=== PATIENT | female | born 1950 | race Caucasian/White ===

== ENCOUNTER 2017-11-23 09:52 | Inpatient (IN) | payer MEDICARE ==
[2017-11-23 10:23] LABS: #Basophils 0.1 thou/uL (0.0-0.2); #Eosinphils 0.5 thou/uL (0.0-0.7); #Lymphocytes 1.3 thou/uL (1.20-3.40); #Monocytes 0.5 thou/uL (0.11-0.59); #Neutrophils 6.5 thou/uL (1.40-6.50); %Basophils 0.8 % (0.0-1.0); %Eosinophils 6.1 % (0.0-10.0); %Lymphocytes 14.4 % (21.0-51.0); %Monocytes 6.1 % (0.0-10.0); %Neutrophils 72.7 % (42.0-75.0); Hemoglobin 9.9 g/dL (12.0-16.0); Mean Corpuscular HGB CONC 30.3 g/dL (32.0-36.0); Mean Corpuscular Hemoglobin 26.7 pg (27.0-31.0); Mean Platelet Volume 6.9 fL (7.4-10.4); Platelet Count 479 thou/uL (130-400); RBC Distribution Width 14.8 % (11.5-14.5); Red Blood Cell (RBC) Count 3.72 mill/uL (4.20-5.40)
[2017-11-23 10:42] LABS: ALT (SGPT) 11 U/L (8-55); AST (SGOT) 14 U/L (5-34); Albumin 3.9 g/dL (3.4-4.8); Alkaline Phosphatase 201 U/L (40-150); Anion Gap 14 mmol/L (10-20); BUN (Urea Nitrogen) 17 mg/dL (9.8-20.1); Bilirubin, Total 0.3 mg/dL (0.2-1.2); CK (CPK) Less than 9 U/L (29-168); Calc. Creatinine Clearance 0 mL/min (70-130); Calcium 10.8 mg/dL (7.8-10.44); Carbon Dioxide 22 mmol/L (23-31); Chloride 109 mmol/L (98-107); Estimated GFR-MDRD 25; Globulin 3.3 g/dL (2.4-3.5); Glucose 117 mg/dL (80-115); Potassium 4.6 mmol/L (3.5-5.1); Protein, Total 7.2 g/dL (6.0-8.3); Sodium 140 mmol/L (136-145)
[2017-11-23 10:47] LABS: CKMB 0.6 ng/mL (0-6.6); Troponin I Less than 0.010 ng/mL (< 0.028)
--- NOTE | 2017-11-23 10:58 | CT ---
CT BRAIN WITHOUT CONTRAST: HISTORY: Altered mental status. COMPARISON: None. TECHNIQUE: Multiple contiguous axial images were obtained in a CT of the brain without contrast. FINDINGS: The brain is normal in morphology and attenuation without focal lesions or confluent areas of infarct ion. There is no evidence of hydrocephalus, intracranial hemorrhage, or extraaxial fluid collections . The calvarium and overlying soft tissues are unremarkable. The visualized paranasal sinuses and mast oid air cells are well aerated. IMPRESSION: No evidence of acute intracranial abnormality. POS: [facility]
--- NOTE | 2017-11-23 11:04 | RAD ---
SINGLE VIEW OF THE CHEST: HISTORY: Altered mental status. COMPARISON: None. FINDINGS: Single view of the chest show normal sized cardiomediastinal silhouette. There is no evidence of cons olidation, mass, or pleural effusion. The bones are unremarkable. IMPRESSION: No evidence of acute cardiopulmonary disease. POS: [facility]
[2017-11-23 12:21] LABS: Digoxin 1.31 ng/mL (0.8-2.0)
[2017-11-23] MEDS ORDERED: Acetaminophen 325 MG TAB PO PRN (13:39)
[2017-11-23] MEDS ORDERED: Acetaminophen 650 MG Suppository PR PRN (13:39)
[2017-11-23] MEDS ORDERED: Bisacodyl 5 MG TAB PO PRN (13:39)
[2017-11-23] MEDS ORDERED: Ondansetron HCl/PF 4 MG/2 ML Vial IVP PRN (13:39)
[2017-11-23] MEDS ORDERED: HYDROcodone/Acetaminophen 5/325 mg Tablet PO PRN (13:39)
[2017-11-23] MEDS ORDERED: Sodium Chloride 0.9% 1,000 ML IV SCH (13:45)
[2017-11-23] MEDS: Sodium Chloride 0.9% 1,000 ML IV SCH ×2 (15:27→21:10)
[2017-11-23 16:08] VITALS: BMI 21.9
[2017-11-23] MEDS ORDERED: Ondansetron ODT 4 MG TAB PO PRN (17:53)
[2017-11-23] MEDS ORDERED: Promethazine 25 MG TAB PO PRN (17:53)
[2017-11-23] MEDS ORDERED: Dextrose 50% Abboject 50 ML SYRINGE SLOW IVP PRN (17:54)
[2017-11-23] MEDS ORDERED: Dextrose 5% in Water 1,000 ML IV PRN (17:54)
[2017-11-23] MEDS ORDERED: HumaLOG 300 UNITS/3 ML VIAL SC PRN (17:54)
[2017-11-23] MEDS: Simvastatin 20 MG TAB PO SCH (21:01)
[2017-11-23] MEDS: Docusate 100 MG CAP PO SCH (21:01)
[2017-11-23] MEDS: Topiramate 100 MG TAB PO SCH (21:03)
--- NOTE | 2017-11-23 22:44 | HP ---
PRIMARY CARE PHYSICIAN: Unknown. PRESENTING COMPLAINT: Altered mental state. HISTORY OF PRESENT ILLNESS: 67-year-old female with a past medical history of atrial fibrillation (on Lovenox and digoxin), bipolar disorder on lithium, type 2 diabetes mellitus, hypothyroidism, hypertension, and CKD who presented to the emergency room today after she was found altered by her family. She was noted to have had change in her mental state since 10/2017 after she had a large liver cyst removal and an incidental cholecystectomy at [facility] on 11/15/2017. She had a complicated postop course which required stay in the ICU. Investigations were negative including an EEG, CT brain, as well as an MRI of her brain. The family notes that she was not herself today and was confused and not responding appropriately. They reported that she had gotten better over the past couple of weeks. She denied fever, chills, shortness of breath, chest pain, lower extremity edema, PND or orthopnea. At the emergency room, her vital signs were stable. Labs are significant for a lithium level of 2.84. Digoxin level was 1.31. Serum ammonia and TSH were not elevated. Chest x-ray was unremarkable and a brain CT scan showed no evidence of acute intracranial abnormalities. She was started on bolus fluids in the emergency room and admitted for further management. PAST MEDICAL HISTORY: Atrial fibrillation, bipolar disorder, type 2 diabetes mellitus, hypothyroidism , hypertension, CKD. PAST SURGICAL HISTORY: Cyst removal in the liver, cholecystectomy, and orthopedic surgery involving both ankles. SOCIAL HISTORY: She drinks alcohol socially, but does not smoke cigarettes (per chart review). FAMILY HISTORY: Reviewed and not pertinent. ALLERGIES: LATEX and NATURAL RUBBER. REVIEW OF SYSTEMS: Unable to obtain due to patient's altered mental state. PHYSICAL EXAMINATION: VITAL SIGNS: On arrival, she was hypertensive with blood pressure of 172/76. Other vital signs were within normal apart from low grade temperature 100.5 degrees Fahrenheit. CONSTITUTIONAL: Alert, oriented to person, and occasionally to place. HEENT: Normocephalic, atraumatic. PERRLA, EOMI, anicteric, not pale. RESPIRATORY: Vesicular breath sounds bilaterally with no wheezes, rales or rhonchi. CARDIOVASCULAR: Regular rate and rhythm, S1 and S2 only. No murmurs, rubs or gallops. ABDOMEN: Bowel sounds present, not tender, not distended. No organomegaly. MUSCULOSKELETAL: Moves all extremities spontaneously. No gross abnormality observed. SKIN: Warm, dry, well perfused. NEUROLOGIC: Unable to follow simple commands, Alert but confused. No obvious focal deficit, but examination limited due to the patient's mental status. PSYCHIATRIC: Unable to assess. LABORATORY DATA: As stated above. EKG sinus bradycardia. IMAGING: CT brain and chest x-ray with no acute findings. ASSESSMENT AND PLAN: 1. [place] toxicity. Patient with bipolar disorder presenting with lithium toxicity. She has been started on IV fluids. We will continue on fluids, get repeat lithium in the morning and a Nephrology consult regarding possible hemodialysis. 2. Acute kidney injury on chronic kidney disease: serum creatinine 1.99 on arrival, should improve with hydration. If it does not improve, we will get a retroperitoneal ultrasound to rule out obstructive uropathy. 3. Type 2 diabetes mellitus, controlled at the emergency room, her blood glucose on arrival was 117. Due to acute kidney injury, we will hold metformin , start on sliding scale insulin, diabetic diet, hypoglycemia protocol and fingerstick glucose before meals and at bedtime. 4. Atrial fibrillation. She is rate controlled. We will continue metoprolol, but hold digoxin. We will also continue home Lovenox dose. 5. Hypothyroidism. Resume levothyroxine. 6. Hypertension. Resume home medications, monitor blood pressure closely. MTDD
[2017-11-24] MEDS: Levothyroxine Sodium 75 MCG TAB PO SCH (05:28)
[2017-11-24] MEDS: Sodium Chloride 0.9% 1,000 ML IV SCH ×2 (05:32→12:44)
[2017-11-24 05:42] LABS: #Eosinphils 0.2 thou/uL (0.0-0.7); #Lymphocytes 1.2 thou/uL (1.20-3.40); #Monocytes 0.6 thou/uL (0.11-0.59); #Neutrophils 5.5 thou/uL (1.40-6.50); %Basophils 0.6 % (0.0-1.0); %Eosinophils 3.3 % (0.0-10.0); %Lymphocytes 15.6 % (21.0-51.0); %Monocytes 7.8 % (0.0-10.0); %Neutrophils 72.8 % (42.0-75.0); Hemoglobin 8.7 g/dL (12.0-16.0); Mean Corpuscular HGB CONC 29.4 g/dL (32.0-36.0); Mean Corpuscular Hemoglobin 26.3 pg (27.0-31.0); Mean Corpuscular Volume 89.6 fl (81.0-99.0); Mean Platelet Volume 7.3 fL (7.4-10.4); Platelet Count 391 thou/uL (130-400); Red Blood Cell (RBC) Count 3.29 mill/uL (4.20-5.40); White Blood Cell (WBC) Count 7.5 thou/uL (4.8-10.8)
[2017-11-24 05:55] LABS: ALT (SGPT) 7 U/L (8-55); AST (SGOT) 10 U/L (5-34); Albumin 3.3 g/dL (3.4-4.8); Alkaline Phosphatase 174 U/L (40-150); Anion Gap 10 mmol/L (10-20); BUN (Urea Nitrogen) 14 mg/dL (9.8-20.1); Bilirubin, Total 0.3 mg/dL (0.2-1.2); Calc. Creatinine Clearance 35 mL/min (70-130); Calcium 9.8 mg/dL (7.8-10.44); Carbon Dioxide 20 mmol/L (23-31); Chloride 121 mmol/L (98-107); Estimated GFR-MDRD 36; Globulin 2.6 g/dL (2.4-3.5); Glucose 147 mg/dL (80-115); Potassium 4.6 mmol/L (3.5-5.1); Protein, Total 5.9 g/dL (6.0-8.3); Sodium 146 mmol/L (136-145)
[2017-11-24] MEDS: Docusate 100 MG CAP PO SCH ×2 (08:46→21:51)
[2017-11-24] MEDS: Folic Acid 1 MG TAB PO SCH (08:47)
[2017-11-24] MEDS ORDERED: Enoxaparin Sodium 40 MG/0.4 ML SYRINGE SC SCH ×2 (09:00→12:13)
--- NOTE | 2017-11-24 10:26 | CON ---
DATE OF CONSULTATION: 11/24/2017 HISTORY OF PRESENT ILLNESS: Ms. Salas is a 67-year-old white female with known history of bipolar d isorder, admitted for mental status change. She was noted to have elevated lithium level 2.84. She was admitted for further management. She was given IV hydration with improvement of the lithium level to less than 2. Next level being consulted for acute kidney injury as well as for the elevated lithium. Based on the lab work a nd responds of the lithium to IV hydration, I do not think there is any indication for emergent hemod ialysis. Please note this patient was recently admitted at [facility] for removal of large l iver cyst and an incidental cholecystectomy was done. Postop course required her to stay in the ICU due to some metabolic abnormality -? of hypernatremia. REVIEW OF SYSTEMS: I am unable to obtained the review of systems since the patient is incoherent and dysarthric. HOME MEDICATIONS: With this patient included the following, colestipol 1 gram p.o. b.i.d. p.r.n., Le vothyroxine 75 mcg q. day, Phenergan 25 mg q.6 hours p.r.n., Zofran 4 mg p.o. b.i.d., Lovenox 40 mg s ubcu daily, lithium carbonate 450 mg b.i.d., digoxin 0.125 mg daily, simvastatin 20 mg at bedtime, me toprolol succinate 25 mg daily, topiramate 100 mg p.o. at bedtime, metformin 1000 mg p.o. b.i.d., fol ic acid 1 mg daily, and omeprazole 20 mg tab t.i.d. PAST MEDICAL HISTORY: Includes, bipolar disorder, hypothyroidism, hyperlipidemia, chronic atrial fib rillation, hypertension, type 2 diabetes mellitus, and GERD. PAST SURGICAL HISTORY: 1. Recently status post excision of liver cyst. 2. Status post cholecystectomy. 3. Status post colonoscopy with polypectomy status post bilateral ankle surgery. SOCIAL HISTORY: Alcohol is rarely. No IV drug abuse. No history of smoking. The patient lives wit h family at home. Sedentary lifestyle. ALLERGIES: LATEX. TRAUMA: None. IMMUNIZATIONS: Up to date. HOSPITALIZATIONS: Please see past medical history. FAMILY HISTORY: No family history of ESRD. PHYSICAL EXAMINATION: VITAL SIGNS: Blood pressure is 130/41, heart rate 55, respiratory rate 19, and temperature 98.4. GENERAL: She is awake, but not following commands, somewhat dysarthric. HEENT: Pinkish conjunctivae, anicteric sclerae. NECK: No neck mass, no carotid bruits, no JVD. CHEST: No deformities. LUNGS: Clear breath sounds. HEART: Normal sinus rhythm. No murmur, no gallops, no rubs. ABDOMEN: Globular, soft, nontender, no masses. EXTREMITIES: No edema or deformities. NEUROLOGIC: Moving all extremities. No tremors, no asterixis, no ataxia. The patient is dysarthric . She is awake, but not coherent. LABORATORY DATA: 11/24/2017 - White count 7.5, hemoglobin 8.7, hematocrit 29.5. Sodium 146, potassi um 4.6, chloride is 121, carbon dioxide 20, BUN 14, creatinine 1.45, glucose 147, calcium 9.8, AST 10 , ALT 7. BNP 394, albumin 3.3. TSH is 2.25, lithium level 11/23/2017 was 2.8, 11/24/2017 was 1.8. Digoxin level 1.31. Chest x-ray shows no CHF, no infiltrates. CT scan of the brain, no acute intrac ranial abnormality. ASSESSMENT AND PLAN: 1. Chronic renal failure - the possibility of chronic lesion or nephrotoxicity remains with this pat ient. Long-term plan is that this patient may need to be converted to another medication aside from her lithium for her bipolar disorder. For the moment, we will be holding lithium due to the elevated level. 2. Elevated lithium levels - Currently on IV hydration, improvement of the lithium level, the most r ecent value of 1.8. No indication for any emergent hemodialysis. 3. Hypernatremia. Encourage the patient to increase free water intake. I could not rule out the po ssibility that this patient may have underlying diabetes insipidus, if the serum sodium will further worsen or will not improve. We will be doing urinalysis with this patient. Recheck base met CBC in a.m. and we will do a renal ultrasound. Overall, I agree with current management. She is diuresing well with the current IV hydration.
[2017-11-24 11:28] LABS: Bilirubin Negative (Negative); Blood, Urine Negative (Negative); Clarity CLEAR (Clear); Glucose, Urine (Dipstick) Negative (Negative); Leukocyte Trace (Negative); Nitrite Negative (Negative); Protein, Urine (Dipstick) Negative (Neg-Trace); Specific Gravity, Urine 1.009 (1.002-1.036); Urobilinogen 0.2 mg/dL (0.2-1.0); pH, Urine 7.5 (5.0-9.0)
[2017-11-24 11:45] LABS: Bacteria/HPF None Seen HPF (None Seen); Hyaline Casts/LPF 0-3 HYALINE CAST LPF (0-3 Hyaline); RBC/HPF 0-3 HPF (0-3); Squamous Epithelial 0-3 HPF (0-3); WBC/HPF 0-3 HPF (0-3)
--- NOTE | 2017-11-24 12:09 | PDOC.PN ---
- Subjective Encounter Start Date: 11/24/17 Encounter Start Time: 12:15 Subjective: Stable. No acute events overnight. Melvin levels improving. - Objective Resuscitation Status: Resuscitation Status FULL:Full Resuscitation MAR Reviewed: Yes Vital Signs & Weight: Vital Signs (12 hours) Temp Pulse Resp BP Pulse Ox 11/24/17 11:31 97.6 F 60 16 131/60 94 L 11/24/17 10:19 55 L 16 150/67 H 11/24/17 08:00 97.1 F L 61 16 137/62 100 11/24/17 03:44 97.6 F 61 20 147/66 H 99 Weight Weight 127 lb 8 oz I&O: 11/23/17 11/24/17 11/25/17 06:59 06:59 06:59 Intake Total 2015 Output Total 1900 700 Balance 116 -700 Result Diagrams: 11/24/17 04:41 11/24/17 04:41 Additional Labs: Accuchecks 11/24/17 11/23/17 06:03 20:24 POC Glucose 135 H 101 Phys Exam - Physical Examination Constitutional: NAD HEENT: PERRLA, moist MMs, sclera anicteric Neck: supple, full ROM Respiratory: no wheezing, no rales, clear to auscultation bilateral Cardiovascular: RRR, no significant murmur, no rub Gastrointestinal: soft, non-tender, no distention, positive bowel sounds Musculoskeletal: no edema, pulses present Neurological: moves all 4 limbs Unable to cooperate with exam Deviation from normal: Confused, unable to converse Dx/Plan (1) [place] toxicity Code(s): T56.891A - TOXIC EFFECT OF OTH METALS, ACCIDENTAL (UNINTENTIONAL), INIT Status: Acute Qualifiers: Encounter type: subsequent encounter Injury intent: accidental or unintentional Qualified Code(s): T56.891D - Toxic effect of other metals, accidental (unintentional), subsequent encounter Plan: Continue current management. Comment: Improving with diuresis. Nephrology consulte. No HD indicated. (2) Acute on chronic renal failure Code(s): N17.9 - ACUTE KIDNEY FAILURE, UNSPECIFIED; N18.9 - CHRONIC KIDNEY DISEASE, UNSPECIFIED Status: Acute Qualifiers: Acute renal failure type: unspecified Chronic kidney disease stage: stage 3 (moderate) Qualified Code(s): N17.9 - Acute kidney failure, unspecified; N18.3 - Chronic kidney disease, stage 3 (moderate); N18.3 - Chronic kidney disease, stage 3 (moderate) Plan: Continue current management. Comment: Improving with diuresis. f/u renal US. (3) HTN (hypertension) Code(s): I10 - ESSENTIAL (PRIMARY) HYPERTENSION Status: Acute Qualifiers: Hypertension type: essential hypertension Qualified Code(s): I10 - Essential (primary) hypertension Plan: Continue current management. Comment: Fair control. (4) Type 2 diabetes mellitus Status: Acute Qualifiers: Diabetes mellitus complication status: with kidney complications Diabetes mellitus complication detail: with chronic kidney disease Diabetes mellitus terminal operator insulin use: without terminal operator use Chronic kidney disease stage: stage 3 (moderate) Qualified Code(s): E11.22 - Type 2 diabetes mellitus with diabetic chronic kidney disease; N18.3 - Chronic kidney disease, stage 3 ( moderate); N18.3 - Chronic kidney disease, stage 3 (moderate) Plan: Continue current management. Comment: At goal. Metformin being held 2/2 OLGA LIDIA (5) Bipolar disorder Code(s): F31.9 - BIPOLAR DISORDER, UNSPECIFIED Status: Acute Qualifiers: Active/Remission status: remission status unspecified Qualified Code(s): F31.9 - Bipolar disorder, unspecified Plan: Continue current management. Comment: On Melvin as outpatient but p/w lithium toxicity. Will need an alternative medication. (6) A-fib Code(s): I48.91 - UNSPECIFIED ATRIAL FIBRILLATION Status: Acute Qualifiers: Atrial fibrillation type: chronic Qualified Code(s): I48.2 - Chronic atrial fibrillation Plan: Continue current management. Comment: Rate controlled. Had pauses on telemetry. Asymptomatic. Cardiology consulted. (7) Hypothyroidism Code(s): E03.9 - HYPOTHYROIDISM, UNSPECIFIED Status: Acute Qualifiers: Hypothyroidism type: unspecified Qualified Code(s): E03.9 - Hypothyroidism , unspecified Plan: Continue current management. - Plan cont current plan of care, DVT proph w/lovenox [facility] review. * .
[2017-11-24] MEDS ORDERED: hydrALAZINE 20 MG/ML VIAL SLOW IVP PRN (12:10)
--- NOTE | 2017-11-24 12:16 | ULT ---
ULTRASOUND RETROPERITONEUM COMPLETE: (RENAL) DATE: 11-24-17 HISTORY: 67-year-old female with unspecified renal failure. COMPARISON: None. FINDINGS: Right kidney: 11 x 6.5 x 6 cm Left kidney: 9 x 6.5 x 4.5 cm No right sided hydronephrosis. Mild dilation of the central left renal collecting system. Abnormally diffusely heterogeneously increased echogenicity of the bilateral renal parenchyma, consis tent with medical renal disease. Pre void urinary bladder volume is 460 ml. Bilateral ureteral jets are visualized within the bladder. No abnormal thickening of the urinary bladder bledsoe. Patient unable to void voluntarily. There is an approximately 1 cm hypoechoic lesion in the parenchyma of the lower pole of the left kidn ey, probably a cyst. IMPRESSION: 1. Evidence for medical renal disease: Abnormal echogenicity of the renal parenchyma. 2. Minimal left hydronephrosis is probably due to the distended urinary bladder. No true obstructive uropathy. 3. Probable small 1 cm left renal cyst. MOLLY Xiong POS: [facility]
[2017-11-24] MEDS ORDERED: Enoxaparin Sodium 30 MG/0.3 ML SYRINGE SC SCH (12:30)
--- NOTE | 2017-11-24 15:36 | CON ---
DATE OF CONSULTATION: 11/24/2017 HISTORY OF PRESENT ILLNESS: The patient is a 67-year-old woman who presented with altered mental status. The patient has no previous cardiac history until she was recently hospitalized at [facility]. The patient was found to have a large liver cyst that was removed and underwent a cholecystectomy. Following the procedure, she apparently developed atrial fibrillation. She also developed bradycardia. She was placed on digoxin and metoprolol. The patient presented with lithium toxicity and was admitted with altered mental status. The patient is responsive and now more alert. She denies having any history of syncope or lightheadedness. PAST MEDICAL HISTORY: 1. Bipolar disorder. 2. Diabetes mellitus. 3. Hypertension. 4. Hypothyroidism. 5. Renal insufficiency. 6. Atrial fibrillation. PAST SURGICAL HISTORY: Cyst removal, cholecystectomy and ankle surgery. SOCIAL HISTORY: Former smoker. FAMILY HISTORY: No strong family history of heart disease. ALLERGIES: LATEX. REVIEW OF SYSTEMS: No history of easy bruising or bleeding, bright red blood per rectum. MEDICATIONS ON ADMISSION: I Synthroid 75 mcg daily, Lovenox 40 subcutaneous daily, lithium 450 b.i.d., digoxin 0.125 daily, Zocor 20 at bedtime, Toprol 25 XL daily, topiramate 100 at bedtime, metformin 1000 b.i.d., and Prilosec 20 t.i.d. PHYSICAL EXAMINATION: GENERAL AND VITAL SIGNS: This is a middle-aged woman in no acute distress with a blood pressure 131/60 and heart rate is 60. NECK: Showed no jugular venous distention. LUNGS: Clear to auscultation. HEART: Regular rate and rhythm, normal S1, S2, 1/6 systolic murmur. ABDOMEN: Nondistended. EXTREMITIES: Showed no edema. SKIN: Warm and dry. VASCULAR: Radial pulses are 2+. LABORATORY RESULTS: Sodium 146, potassium 4.6, chloride 121, BUN 14, creatinine was 1.45. Her white blood cell count level was 7.5, hemoglobin 8.7, hematocrit 29.5 and her platelets were 391. Her lithium level was 2.8. Digoxin was 1.3. Her EKG revealed sinus bradycardia, Q-waves suggestive of previous septal infarct. awake overnight monitor revealed marked sinus bradycardia with prolonged pauses up to 2.7 seconds. IMPRESSION: 1. Bradycardia with severe sinus pauses. 2. [place] toxicity. 3. History of possible atrial fibrillation. 4. History of bipolar disorder. 5. Diabetes mellitus. This patient recently underwent surgery. She has developed marked bradycardia after another dose of beta debbi this morning .From a cardiac standpoint, she should be off all negative inotropic medications including digoxin. The patient 's lithium has been held. We will follow this patient with you through her hospitalization. We will obtain records from her previous cardiology evaluation. UZAIR
[2017-11-24] MEDS: Dextrose 5 %-0.45 % NaCl 1,000 ML IV SCH (20:00)
[2017-11-24 20:29] LABS: Calcium 10.3 mg/dL (7.8-10.44); Magnesium 2.1 mg/dL (1.6-2.6); Sodium 150 mmol/L (136-145)
[2017-11-24] MEDS: Simvastatin 20 MG TAB PO SCH (21:22)
[2017-11-24] MEDS: Topiramate 100 MG TAB PO SCH (21:22)
[2017-11-25 02:14] LABS: #Eosinphils 0.1 thou/uL (0.0-0.7); #Lymphocytes 1.3 thou/uL (1.20-3.40); #Monocytes 0.8 thou/uL (0.11-0.59); #Neutrophils 4.7 thou/uL (1.40-6.50); %Basophils 0.3 % (0.0-1.0); %Lymphocytes 18.3 % (21.0-51.0); %Monocytes 12.1 % (0.0-10.0); %Neutrophils 67.3 % (42.0-75.0); Hemoglobin 8.8 g/dL (12.0-16.0); Mean Corpuscular HGB CONC 29.9 g/dL (32.0-36.0); Mean Corpuscular Hemoglobin 26.7 pg (27.0-31.0); Mean Corpuscular Volume 89.2 fl (81.0-99.0); Mean Platelet Volume 7.3 fL (7.4-10.4); Platelet Count 379 thou/uL (130-400); RBC Distribution Width 15.1 % (11.5-14.5); Red Blood Cell (RBC) Count 3.31 mill/uL (4.20-5.40); White Blood Cell (WBC) Count 6.9 thou/uL (4.8-10.8)
[2017-11-25] MEDS: Dextrose 5 %-0.45 % NaCl 1,000 ML IV SCH (02:28)
[2017-11-25 02:57] LABS: ALT (SGPT) 10 U/L (8-55); AST (SGOT) 10 U/L (5-34); Albumin 3.4 g/dL (3.4-4.8); Alkaline Phosphatase 175 U/L (40-150); Anion Gap 10 mmol/L (10-20); BUN (Urea Nitrogen) 11 mg/dL (9.8-20.1); Bilirubin, Total 0.3 mg/dL (0.2-1.2); Calc. Creatinine Clearance 38 mL/min (70-130); Calcium 10.4 mg/dL (7.8-10.44); Carbon Dioxide 17 mmol/L (23-31); Estimated GFR-MDRD 40; Globulin 2.8 g/dL (2.4-3.5); Glucose 200 mg/dL (80-115); Potassium 4.5 mmol/L (3.5-5.1); Protein, Total 6.2 g/dL (6.0-8.3); Sodium 152 mmol/L (136-145)
[2017-11-25 03:00] LABS: Chloride 130 mmol/L (98-107)
[2017-11-25] MEDS ORDERED: Dextrose 5% in Water 1,000 ML IV PRN (03:08)
[2017-11-25] MEDS ORDERED: HumaLOG 300 UNITS/3 ML VIAL SC PRN (03:08)
[2017-11-25] MEDS ORDERED: Dextrose 50% Abboject 50 ML SYRINGE SLOW IVP PRN (03:08)
--- NOTE | 2017-11-25 03:11 | PDOC.EVN ---
Event Note - Event Note Event Note: paged re: progressive hypernatremia despite change in IVF from NS to D5W 1/2 NS will change IVF to D5W, check urine osm, BMP Q6H add SSI for anticipated IVF inducted hyperglycemia d/w bedside nsg
[2017-11-25] MEDS ORDERED: Dextrose 5% in Water 1,000 ML IV SCH ×2 (03:15→08:45)
[2017-11-25] MEDS: Sodium Chloride 0.9% 1,000 ML IV SCH (03:45)
[2017-11-25] MEDS: Levothyroxine Sodium 75 MCG TAB PO SCH ×3 (05:10→09:19)
[2017-11-25 05:58] LABS: Anion Gap 9 mmol/L (10-20); BUN (Urea Nitrogen) 9 mg/dL (9.8-20.1); Calc. Creatinine Clearance 38 mL/min (70-130); Carbon Dioxide 18 mmol/L (23-31); Estimated GFR-MDRD 41; Glucose 195 mg/dL (80-115); Potassium 4.4 mmol/L (3.5-5.1); Sodium 153 mmol/L (136-145)
[2017-11-25 06:07] LABS: Chloride 130 mmol/L (98-107)
[2017-11-25] MEDS ORDERED: Enoxaparin Sodium 30 MG/0.3 ML SYRINGE SC SCH ×2 (09:00→09:23)
[2017-11-25] MEDS: Docusate 100 MG CAP PO SCH ×2 (09:13→20:43)
--- NOTE | 2017-11-25 09:14 | PRG ---
DATE OF SERVICE: 11/25/2017 SUBJECTIVE: Ms. Salas is a 67-year-old white female who was admitted for mental status change. At that time. She was also noted to have a mildly elevated creatinine and elevated lithium. Aggressive IV hydration was done which improved the lithium level to a most recent value of 1.1. However, the patient was noted to be more hypernatremic this morning. I did speak with the nurse and the patient has decreased p.o. intake such as free water. The patient's IV fluid has been changed from normal sa line to D5 water. In addition, we have increased the rate of the D5 water to 125 mL an hour. Please note this patient has decreased/poor p.o. intake. No other complaints today. Denies any chest ren n or shortness of breath. She feels somewhat dysarthric. PHYSICAL EXAMINATION: VITAL SIGNS: Blood pressure is 154/69, heart rate 55, respiratory rate is 18, temperature 98.1, puls e ox 96%. GENERAL: Noted to be awake, alert, can follows simple verbal commands, dysarthric, not in respirator y distress. SKIN: Adequate turgor. HEENT: She has slightly pale conjunctivae, anicteric sclerae. NECK: No neck mass, no carotid bruits, no JVD. CHEST: No deformities. LUNGS: Clear breath sounds. No wheezing, no crackles. HEART: Normal sinus rhythm. No murmur, no gallops or rubs. ABDOMEN: Globular, soft, nontender, no masses. EXTREMITIES: No edema or deformities. MEDICATIONS: 11/25/2017 - Reviewed. LABORATORY: 11/25/2017 - [place] level is 1.1. 11/24/2017 - Urinalysis showed specific gravity of 1.009, no casts noted, no red cells, no white cell s. 11/25/2017. Urine osmolality is 181, sodium 153, potassium 4.4, chloride 130, carbon dioxide 18, BUN 9, creatinine 1.29, glucose is 195, calcium 10. Renal ultrasound shows increased cortical echogenicity. ASSESSMENT AND PLAN: 1. Acute kidney injury - consider a superimposed hemodynamically mediated renal dysfunction on top o f underlying chronic renal failure from possible lithium nephrotoxicity. Please note this patient matias s been taking lithium for the last 40 years for her bipolar disorder. 2. Hypernatremia - IV Fluid has been changed from normal saline to D5 water - I increased the rate t o 125 mL per hour due to the decreased p.o. intake with this patient. 3. Elevated lethal levels, resolved with IV hydration. There is no indication for any dialytic inte rvention. 4. Bipolar disorder. Psychiatric consult was done with her psychiatrist, Dr. Sutton. Overall, I agree with current management, recheck basic metabolic panel and. in a.m.
[2017-11-25] MEDS: Folic Acid 1 MG TAB PO SCH (09:20)
[2017-11-25 09:21] LABS: Anion Gap 6 mmol/L (10-20); BUN (Urea Nitrogen) 8 mg/dL (9.8-20.1); Calc. Creatinine Clearance 36 mL/min (70-130); Calcium 10.2 mg/dL (7.8-10.44); Carbon Dioxide 22 mmol/L (23-31); Estimated GFR-MDRD 39; Glucose 175 mg/dL (80-115); Potassium 4.1 mmol/L (3.5-5.1); Sodium 152 mmol/L (136-145)
[2017-11-25 09:25] LABS: Chloride 128 mmol/L (98-107)
[2017-11-25] MEDS: Enoxaparin Sodium 40 MG/0.4 ML SYRINGE SC SCH (10:46)
--- NOTE | 2017-11-25 11:03 | PDOC.PN ---
- Subjective Encounter Start Date: 11/25/17 Encounter Start Time: 11:11 -: non-verbal (able to say few words (baseline per son)) Subjective: No acute events overnight. -: No complains but difficult to tell since she is mainly non verbal. -: Seems comfortable w family in room. - Objective Resuscitation Status: Resuscitation Status FULL:Full Resuscitation MAR Reviewed: Yes Vital Signs & Weight: Vital Signs (12 hours) Temp Pulse Resp BP Pulse Ox 11/25/17 09:00 97.6 F 59 L 18 167/70 H 100 11/25/17 04:00 98.1 F 55 L 18 154/69 H 96 Weight Weight 123 lb 6.4 oz I&O: 11/24/17 11/25/17 11/26/17 06:59 06:59 06:59 Intake Total 20150 Output Total 1900 3000 Balance 116 370 Result Diagrams: 11/25/17 02:02 11/25/17 08:48 Additional Labs: Accuchecks 11/25/17 11/24/17 11/24/17 06:03 15:38 11:18 POC Glucose 190 H 158 H 149 H Phys Exam - Physical Examination Constitutional: NAD HEENT: PERRLA, moist MMs, sclera anicteric, oral pharynx no lesions Neck: supple, full ROM Respiratory: no wheezing, no rales, no rhonchi, clear to auscultation bilateral Cardiovascular: RRR, no significant murmur, no rub Gastrointestinal: soft, non-tender, no distention, positive bowel sounds Musculoskeletal: no edema, pulses present Neurological: moves all 4 limbs Unable to cooperate w exam Deviation from normal: flat affect. Unable to answer questions appropriately ( son says its b/l) Skin: no rash, normal turgor Dx/Plan (1) Hypernatremia Code(s): E87.0 - HYPEROSMOLALITY AND HYPERNATREMIA Status: Acute Plan: Asymptomatic. 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 Urine output > 3000 mLs. Will get urine, serum sodium and osmolality. Water restriction test not indicated in this patient. (2) Bradycardia Code(s): R00.1 - BRADYCARDIA, UNSPECIFIED Status: Acute Comment: HAd severe pauses. Cardiology reviewed. All [place] blocking agents have been discontinued (3) [place] toxicity Code(s): T56.891A - TOXIC EFFECT OF OTH METALS, ACCIDENTAL (UNINTENTIONAL), INIT Status: Acute Qualifiers: Encounter type: subsequent encounter Injury intent: accidental or unintentional Qualified Code(s): T56.891D - Toxic effect of other metals, accidental (unintentional), subsequent encounter Comment: Improving with diuresis. Nephrology consulte. No HD indicated. (4) Acute on chronic renal failure Code(s): N17.9 - ACUTE KIDNEY FAILURE, UNSPECIFIED; N18.9 - CHRONIC KIDNEY DISEASE, UNSPECIFIED Status: Acute Qualifiers: Acute renal failure type: unspecified Chronic kidney disease stage: stage 3 (moderate) Qualified Code(s): N17.9 - Acute kidney failure, unspecified; N18.3 - Chronic kidney disease, stage 3 (moderate); N18.3 - Chronic kidney disease, stage 3 (moderate) Comment: Improving with diuresis. Renal US showed medical renal disease. (5) HTN (hypertension) Code(s): I10 - ESSENTIAL (PRIMARY) HYPERTENSION Status: Acute Qualifiers: Hypertension type: essential hypertension Qualified Code(s): I10 - Essential (primary) hypertension Comment: Fair control. (6) Type 2 diabetes mellitus Status: Acute Qualifiers: Diabetes mellitus complication status: with kidney complications Diabetes mellitus complication detail: with chronic kidney disease Diabetes mellitus manager intermediate insulin use: without manager intermediate use Chronic kidney disease stage: stage 3 (moderate) Qualified Code(s): E11.22 - Type 2 diabetes mellitus with diabetic chronic kidney disease; N18.3 - Chronic kidney disease, stage 3 ( moderate); N18.3 - Chronic kidney disease, stage 3 (moderate) Comment: At goal. Metformin being held 2/2 OLGA LIDIA (7) Bipolar disorder Code(s): F31.9 - BIPOLAR DISORDER, UNSPECIFIED Status: Acute Qualifiers: Active/Remission status: remission status unspecified Qualified Code(s): F31.9 - Bipolar disorder, unspecified Comment: On [place] as outpatient but p/w lithium toxicity. Will need an alternative medication. (8) A-fib Code(s): I48.91 - UNSPECIFIED ATRIAL FIBRILLATION Status: Acute Qualifiers: Atrial fibrillation type: chronic Qualified Code(s): I48.2 - Chronic atrial fibrillation Comment: Rate controlled. (9) Hypothyroidism Code(s): E03.9 - HYPOTHYROIDISM, UNSPECIFIED Status: Acute Qualifiers: Hypothyroidism type: unspecified Qualified Code(s): E03.9 - Hypothyroidism , unspecified Comment: On levothyroxiine. Will continue - Plan cont current plan of care, plan discussed w/ family, DVT proph w/lovenox * .
[2017-11-25 12:11] LABS: Sodium 149 mmol/L (136-145)
[2017-11-25] MEDS: Sodium Chloride 0.45% 1,000 ML IV SCH ×2 (12:37→22:15)
[2017-11-25 18:47] LABS: Sodium 149 mmol/L (136-145)
[2017-11-25] MEDS: Simvastatin 20 MG TAB PO SCH (20:42)
[2017-11-25] MEDS: Topiramate 100 MG TAB PO SCH (20:42)
[2017-11-26 05:31] LABS: #Basophils 0.1 thou/uL (0.0-0.2); #Eosinphils 0.9 thou/uL (0.0-0.7); #Lymphocytes 2.1 thou/uL (1.20-3.40); #Monocytes 0.8 thou/uL (0.11-0.59); #Neutrophils 4.5 thou/uL (1.40-6.50); %Basophils 0.8 % (0.0-1.0); %Eosinophils 10.4 % (0.0-10.0); %Lymphocytes 25.4 % (21.0-51.0); %Monocytes 9.4 % (0.0-10.0); %Neutrophils 54.1 % (42.0-75.0); Hemoglobin 8.3 g/dL (12.0-16.0); Mean Corpuscular HGB CONC 29.4 g/dL (32.0-36.0); Mean Corpuscular Hemoglobin 26.6 pg (27.0-31.0); Mean Corpuscular Volume 90.5 fl (81.0-99.0); Mean Platelet Volume 7.6 fL (7.4-10.4); Platelet Count 320 thou/uL (130-400); RBC Distribution Width 15.2 % (11.5-14.5); Red Blood Cell (RBC) Count 3.12 mill/uL (4.20-5.40); White Blood Cell (WBC) Count 8.3 thou/uL (4.8-10.8)
[2017-11-26] MEDS: Levothyroxine Sodium 75 MCG TAB PO SCH (05:43)
[2017-11-26 05:44] LABS: ALT (SGPT) 8 U/L (8-55); AST (SGOT) 12 U/L (5-34); Alkaline Phosphatase 151 U/L (40-150); Anion Gap 9 mmol/L (10-20); BUN (Urea Nitrogen) 7 mg/dL (9.8-20.1); Bilirubin, Total 0.3 mg/dL (0.2-1.2); Calc. Creatinine Clearance 39 mL/min (70-130); Calcium 9.5 mg/dL (7.8-10.44); Carbon Dioxide 18 mmol/L (23-31); Chloride 125 mmol/L (98-107); Estimated GFR-MDRD 42; Globulin 2.4 g/dL (2.4-3.5); Glucose 140 mg/dL (80-115); Potassium 4.2 mmol/L (3.5-5.1); Protein, Total 5.4 g/dL (6.0-8.3); Sodium 148 mmol/L (136-145)
[2017-11-26] MEDS: Sodium Chloride 0.45% 1,000 ML IV SCH ×2 (08:37→18:34)
[2017-11-26] MEDS: Enoxaparin Sodium 40 MG/0.4 ML SYRINGE SC SCH (08:37)
[2017-11-26] MEDS: Folic Acid 1 MG TAB PO SCH (08:37)
[2017-11-26] MEDS: Docusate 100 MG CAP PO SCH ×2 (09:07→20:31)
--- NOTE | 2017-11-26 09:41 | PRG ---
DATE OF SERVICE: 11/26/2017 RENAL MEDICINE SUBJECTIVE: Ms. Salas is 67-year-old white female with known history of bipolar disorder, who was a dmitted for lithium toxicity. IV hydration was done which improved the lithium levels to near normal levels. In addition, she was also noted to have some acute kidney injury that was most likely relat ed to her acute lithium nephrotoxicity. In addition, patient was also hypernatremic. For that reaso n she was given free water yesterday which improved serum sodium from a peak of 153 to a most recent value of 148. We have changed D5 water to half normal saline. She is verbalizing and articulating h er words much better. She is feeling much better. She denies any chest pain or shortness of breath. PHYSICAL EXAMINATION: VITAL SIGNS: Blood pressure is 145/67, heart rate 61, respiratory rate 18, temperature 97.6, pulse o x 99%. GENERAL: Noted to be awake, alert, comfortable, not in distress. SKIN: Adequate turgor. HEENT: She has slightly pale conjunctivae, anicteric sclerae. NECK: No neck mass, no carotid bruits, no JVD. CHEST: No deformities. LUNGS: Clear breath sounds. No wheezing, no crackles. HEART: Normal sinus rhythm. Grade 2/6 systolic murmur, no gallops, no rubs. ABDOMEN: Globular, soft, nontender, no masses. EXTREMITIES: No edema, no deformities. MEDICATIONS: Medications of 11/26/2017 was reviewed. LABORATORY DATA: Laboratories of 11/26/2017; white count 8.3, hemoglobin 8.3, hematocrit 28.3. [place] um 148, potassium 4.2, chloride 125, carbon dioxide 18, BUN is 7, creatinine 1.28, glucose 140, AST i s 12, ALT 8, and albumin 3.0. ASSESSMENT AND PLAN: 1. Hypernatremia - slowly improving with half normal saline. Unclear if this patient has overt diab etes insipidus - clinically I do not think so. However, I have encouraged the patient to increase he r free water intake. She will try to comply with this. 2. Acute kidney injury - slowly improving. Unclear what the baseline creatinine will be. If creati nine does not go back to normal baseline, she may have lithium nephrotoxicity, especially in the back ground of intake of lithium for about 40 years. 3. [place] intoxication - much improved with volume repletion. In the near future, I have not exclu ded in starting her on amiloride 5 mg tab once a day to decrease renal accumulation of lithium if she is placed back on the lithium regimen. Please note her speech articulation is much improved with im proving lithium levels. Overall, agree with current management.
--- NOTE | 2017-11-26 09:41 | PDOC.PN ---
- Subjective Encounter Start Date: 11/26/17 Encounter Start Time: 09:44 Subjective: More alert and communicative today. -: Able to have a conversation with some pauses. -: No acute events overnight. - Objective Resuscitation Status: Resuscitation Status FULL:Full Resuscitation MAR Reviewed: Yes Vital Signs & Weight: Vital Signs (12 hours) Temp Pulse Resp BP Pulse Ox 11/26/17 08:32 97.6 F 61 18 145/67 H 99 11/26/17 04:00 98.4 F 58 L 16 138/64 97 Weight Weight 123 lb 6.4 oz I&O: 11/25/17 11/26/17 11/27/17 06:59 06:59 06:59 Intake Total 3370 5283 Output Total 3000 3850 Balance 370 1433 Result Diagrams: 11/26/17 04:31 11/26/17 04:31 Additional Labs: Accuchecks 11/25/17 11/25/17 11/25/17 19:55 15:51 11:16 POC Glucose 136 H 142 H 194 H Phys Exam - Physical Examination Constitutional: NAD HEENT: PERRLA, moist MMs, sclera anicteric Neck: supple, full ROM Respiratory: no wheezing, no rales, no rhonchi, clear to auscultation bilateral Cardiovascular: RRR, no significant murmur, no rub Gastrointestinal: soft, non-tender, no distention, positive bowel sounds Musculoskeletal: no edema, pulses present Neurological: non-focal, moves all 4 limbs Psychiatric: normal affect Deviation from normal: AO x 2 (person and place) Dx/Plan (1) Hypernatremia Code(s): E87.0 - HYPEROSMOLALITY AND HYPERNATREMIA Status: Acute Comment: 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 urine Na 49, osm 181. Serum osmolality pending. Continue IVF and monitor sodium Q6H Will f/u w nephrology regarding DDAVP to confirm diagnosis. (2) Bradycardia Code(s): R00.1 - BRADYCARDIA, UNSPECIFIED Status: Resolved Comment: HAd severe pauses. Cardiology reviewed. All [place] blocking agents have been discontinued (3) [place] toxicity Code(s): T56.891A - TOXIC EFFECT OF OTH METALS, ACCIDENTAL (UNINTENTIONAL), INIT Status: Acute Qualifiers: Encounter type: subsequent encounter Injury intent: accidental or unintentional Qualified Code(s): T56.891D - Toxic effect of other metals, accidental (unintentional), subsequent encounter Plan: Repeat lithium level. Comment: Improving with diuresis. Nephrology on board. Recs appreciated. (4) Acute on chronic renal failure Code(s): N17.9 - ACUTE KIDNEY FAILURE, UNSPECIFIED; N18.9 - CHRONIC KIDNEY DISEASE, UNSPECIFIED Status: Acute Qualifiers: Acute renal failure type: unspecified Chronic kidney disease stage: stage 3 (moderate) Qualified Code(s): N17.9 - Acute kidney failure, unspecified; N18.3 - Chronic kidney disease, stage 3 (moderate); N18.3 - Chronic kidney disease, stage 3 (moderate) Plan: Continue IVF Comment: Improving with diuresis. Renal US showed medical renal disease. (5) HTN (hypertension) Code(s): I10 - ESSENTIAL (PRIMARY) HYPERTENSION Status: Acute Qualifiers: Hypertension type: essential hypertension Qualified Code(s): I10 - Essential (primary) hypertension Comment: Fair well controlled (6) Bipolar disorder Code(s): F31.9 - BIPOLAR DISORDER, UNSPECIFIED Status: Acute Qualifiers: Active/Remission status: remission status unspecified Qualified Code(s): F31.9 - Bipolar disorder, unspecified Comment: On [place] as outpatient but p/w lithium toxicity. Will need an alternative medication. Psychiatrist contacted and will see patient on day of discharge. (7) A-fib Code(s): I48.91 - UNSPECIFIED ATRIAL FIBRILLATION Status: Acute Qualifiers: Atrial fibrillation type: chronic Qualified Code(s): I48.2 - Chronic atrial fibrillation Comment: Rate controlled. (8) Hypothyroidism Code(s): E03.9 - HYPOTHYROIDISM, UNSPECIFIED Status: Acute Qualifiers: Hypothyroidism type: unspecified Qualified Code(s): E03.9 - Hypothyroidism , unspecified Comment: On levothyroxiine. Will continue (9) Polyuria Code(s): R35.8 - OTHER POLYURIA Status: Acute Comment: Likely from DI. - Plan cont current plan of care, DVT proph w/lovenox * .
[2017-11-26 12:50] LABS: Sodium 148 mmol/L (136-145)
[2017-11-26 19:07] LABS: Sodium 148 mmol/L (136-145)
[2017-11-26] MEDS: Topiramate 100 MG TAB PO SCH (20:59)
[2017-11-27 00:48] LABS: Sodium 148 mmol/L (136-145)
[2017-11-27] MEDS: Levothyroxine Sodium 75 MCG TAB PO SCH (04:09)
[2017-11-27] MEDS: Sodium Chloride 0.45% 1,000 ML IV SCH (04:09)
[2017-11-27 04:54] LABS: ALT (SGPT) 8 U/L (8-55); AST (SGOT) 10 U/L (5-34); Albumin 3.4 g/dL (3.4-4.8); Alkaline Phosphatase 161 U/L (40-150); Anion Gap 10 mmol/L (10-20); BUN (Urea Nitrogen) 8 mg/dL (9.8-20.1); Bilirubin, Total 0.3 mg/dL (0.2-1.2); Calc. Creatinine Clearance 38 mL/min (70-130); Calcium 9.8 mg/dL (7.8-10.44); Carbon Dioxide 18 mmol/L (23-31); Chloride 123 mmol/L (98-107); Estimated GFR-MDRD 41; Globulin 2.6 g/dL (2.4-3.5); Glucose 123 mg/dL (80-115); Sodium 147 mmol/L (136-145)
[2017-11-27 05:15] LABS: Anisocytosis SLIGHT = 6-15 cells (100X) (0-5/hpf); Eosinophils 4 % (0-10); Hemoglobin 9.5 g/dL (12.0-16.0); Hypochromia SLIGHT = 6-15 cells (100X) (0-5/hpf); Lymphocytes 28 % (21-51); MDiff Complete? YES; Mean Corpuscular HGB CONC 29.5 g/dL (32.0-36.0); Mean Corpuscular Hemoglobin 26.5 pg (27.0-31.0); Mean Corpuscular Volume 89.9 fl (81.0-99.0); Mean Platelet Volume 7.7 fL (7.4-10.4); Monocytes 3 % (0-10); Neutrophil 65 % (42-75); Ovalocytes SLIGHT = 2-5 cells (100X) (0-1/hpf); PLT Morphology Comment Appears Adequate; Platelet Count 349 thou/uL (130-400); RBC Distribution Width 15.2 % (11.5-14.5); Red Blood Cell (RBC) Count 3.56 mill/uL (4.20-5.40)
[2017-11-27 07:16] VITALS: BP 133/79; TEMP 98.2
[2017-11-27] MEDS: Enoxaparin Sodium 40 MG/0.4 ML SYRINGE SC SCH (07:57)
[2017-11-27] MEDS: Docusate 100 MG CAP PO SCH (07:57)
[2017-11-27] MEDS: Folic Acid 1 MG TAB PO SCH (07:57)
--- NOTE | 2017-11-27 10:40 | PRG ---
DATE OF SERVICE: 11/27/2017 SUBJECTIVE: Ms. Salas is a 67-year-old white female who was seen by the Renal Service for her acute kidney injury and lithium intoxication. At that time her lithium level was noted to be elevated, bu t with IV volume repletion this improved to near normal levels. No new complaints. Her mentation is much improved. In addition, her verbal paucity was improved wit h the decreased levels of lithium. The patient voices no new complaints today. She denies any chest pain or shortness of breath. PHYSICAL EXAMINATION: VITAL SIGNS: Blood pressure 133/79, heart rate 65, respiratory rate 16, temperature 98.2, pulse ox 9 9%. GENERAL: Noted to be awake, alert, comfortable, not in distress. SKIN: Adequate turgor. HEENT: She has pinkish conjunctivae, anicteric sclerae. NECK: No neck mass, no carotid bruit, no JVD. CHEST: No deformities. LUNGS: Clear breath sounds. No wheezing, no crackles. HEART: Normal sinus rhythm. No murmur, no gallops, no rubs. ABDOMEN: Globular, soft, nontender, no masses. EXTREMITIES: No edema, no deformities. MEDICATIONS: 11/27/2017 - Reviewed. LABORATORY: 11/27/2017 - White count 8, hemoglobin 9.5, sodium 147, potassium 4, chloride 123, carbo n dioxide 18, BUN is 8, creatinine 1.29, glucose 123, AST is 10, ALT 8, albumin 3.4. ASSESSMENT AND PLAN: 1. Acute kidney injury/chronic renal failure - much improved creatinine with volume repletion. [place] granados note creatinine peaked at 1.37, currently is now 1.29 and she currently has stage III chronic poppy l failure - most likely related to lithium nephrotoxicity. 2. Hypernatremia. She may have a component of diabetes insipidus. I did encourage this patient to increase her free water intake. She will try to comply with this. 3. [place] intoxication - lithium levels are now in the nontoxic level. Unclear if her psychiatrist will resume her back on her lithium. She tells me she takes lithium 450 mg in the morning and then about 225 mg at night. If she is resumed back on lithium my bias is to start her on amiloride 5 mg t ab once a day to prevent accumulation of lithium in the renal tubules. For the moment I agree with current management. If the patient is discharged, she will follow up at the [facility].
--- NOTE | 2017-11-27 15:36 | DIS ---
DATE OF ADMISSION: 11/23/2017 DATE OF DISCHARGE: 11/27/2017 DISCHARGE DIAGNOSES: [place] toxicity, diabetes insipidus, acute on chronic kidney injury, type 2 diabetes mellitus, atrial fibrillation, hypothyroidism, hypertension, bipolar disorder. HISTORY OF PRESENT ILLNESS: Ms. Laurie Salas is a 67-year-old female with a past medical history of atrial fibrillation (on Lovenox and digoxin), bipolar disorder on lithium, type 2 diabetes mellitus, hypertension, CKD, and hypothyroidism who presented to the emergency room after she was found in an altered mental state by her family. She was noted to have had changes in her mental status from 11/07/2017 after she had a large liver cyst removed and incidental cholecystectomy at [facility]. She had a complicated postop course which required an ICU stay. Workup for altered mental state was negative including an EEG, CT brain as well as an MRI of her brain. Family noted that she was not herself on the day of admission, she was confused, and was not responding appropriately. This was after a few days they felt she had gotten better over the last couple of weeks. She denied fever, chills, shortness of breath, chest pain, lower extremity edema, PND, and orthopnea. In the emergency room, her vital signs were stable. Labs showed a significantly elevated lithium level of 2.84. Digoxin level was 1.31. Serum ammonia and TSH were not elevated. Chest x-ray was unremarkable and a brain CT showed no evidence of acute intracranial abnormalities. She was immediately started on IV fluids and admitted for further management. During her hospital stay with hydration, her lithium level progressively got better and she became more alert and oriented. She was alert and oriented to time, place and person on day of discharge and stated she was eager to get back home. Her OLGA LIDIA also resolved. 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 Her urinary output also was significantly improved and less than 2 liters while after IV fluids had been discontinued. She is to follow up with her psychiatrist the day of discharge ( this has been arranged by family) to start medication other than lithium for her bipolar disorder. Family was in agreement with this plan. Of note, patient also had bradycardia with severe pauses while on admission. It was noted that she was on beta-blockers. Cardiology was consulted and recommended discontinuing all [place] blocking agents including metoprolol and digoxin. She is to follow up with Cardiology after discharge from hospital. Heart rate remained within normal range throughout her admission ranging between 60 and 65 after beta blockers were discontinued. PHYSICAL EXAMINATION: VITAL SIGNS: She was examined on day of discharge, vital signs were stable with temperature of 98.2, pulse of 65, respiratory rate of 16, oxygen saturation of 99% on room air, blood pressure 133/79. GENERAL: Not in acute distress, sitting comfortably in bed. HEENT: PERRLA. Moist mucous membranes. Sclerae are anicteric. NECK: Supple, full range of movement. RESPIRATORY: No wheezing, rales or rhonchi. LUNGS: Clear to auscultation bilaterally. CARDIOVASCULAR: Regular rate and rhythm. No significant murmurs or rubs. GASTROINTESTINAL: Soft, nontender, nondistended, positive bowel sounds. No hepatosplenomegaly. MUSCULOSKELETAL: No edema. Pulses present. NEUROLOGIC: Nonfocal. Moves all four limbs spontaneously. PSYCHIATRIC: Normal affect and mood. Alert and oriented to time, place and person. DISCHARGE MEDICATIONS: Colestipol 1 gram b.i.d. p.r.n., enoxaparin 40 mg subcu daily, folic acid 1 mg daily, levothyroxine 75 mcg daily, metformin 1000 mg b.i.d., omeprazole 20 mg t.i.d. with meals, ondansetron 4 mg b.i.d. p.r.n. for nausea and vomiting, promethazine 25 mg q.4 h. p.r.n. for nausea/vomiting, simvastatin 20 mg p.o. at bedtime, topiramate 100 mg p.o. at bedtime. CONSULTS: Nephrology and Cardiology. LABORATORY DATA: [place] level on 11/26/2017, 0.516. CBC showed WBC of 8, hemoglobin of 9.5, hematocrit of 32, platelet count of 349. Chemistry: Sodium 147, potassium 4, chloride 123, carbon dioxide 18, anion gap 10, BUN 8, creatinine 1.29, glucose 206, and calcium 9.8. IMAGING: Brain CT, chest x-ray, renal ultrasound. Renal ultrasound showed medical renal disease. CONDITION AT DISCHARGE: Stable and improved. PROCEDURES: None. DIET: Heart healthy, diabetic. CARE GOALS: To follow up with her primary care physician within 1 week of discharge for repeat labs, to follow up with psychiatry on the day of discharge (this has been arranged by family). She will also follow up with Cardiology after discharge for control of atrial fibrillation. ACTIVITY: As tolerated. Activity as tolerated. Time of discharge, 65 minutes including chart review and documentation. UZAIR
== END 2017-11-27 11:49 | disposition home or self-care (01) | DRG 918 ==
LOC: ERS 09:52 → ERHOLD 11:58 → 2NO 15:15 → T4-B 11-26 18:21
PROVIDERS: ADMIT Internal Medicine; ATTEND Internal Medicine
DX: T56.891A Toxic effect of other metals, accidental (unintentional), initial encounter (principal); N17.9 Acute kidney failure, unspecified; E87.0 Hyperosmolality and hypernatremia; E11.22 Type 2 diabetes mellitus with diabetic chronic kidney disease; N25.1 Nephrogenic diabetes insipidus; I48.2 Chronic atrial fibrillation; R00.1 Bradycardia, unspecified; F31.9 Bipolar disorder, unspecified; E03.9 Hypothyroidism, unspecified; R35.8 Other polyuria; I12.9 Hypertensive chronic kidney disease with stage 1 through stage 4 chronic kidney disease, or unspecified chronic kidney disease; N18.3 Chronic kidney disease, stage 3 (moderate)
CPT/HCPCS: 36415; 36416; 70450; 71045; 76770; 80053; 80162; 80178; 81003; 81015; 82140; 82553; 83735; 83880; 83930; 83935; 84300; 84443; 84484; 85025; 93005; 94760; 96360; 96361; A4216; J1650

== ENCOUNTER 2018-03-09 08:37 | Outpatient (CLI) | payer MEDICARE | END 2018-03-09 08:38 | disposition home or self-care (01) | LOC: BICMAMMO 08:37 | PROVIDERS: ATTEND Family Medicine | DX: Z12.31 Encounter for screening mammogram for malignant neoplasm of breast (principal); Z80.3 Family history of malignant neoplasm of breast | CPT/HCPCS: 77063; 77067 ==

== ENCOUNTER 2018-05-05 09:33 | Outpatient (CLI) | payer MEDICARE ==
[2018-05-05] MEDS ORDERED: Gadobenate Dimeglumine 529 MG/1 ML (20ML VIAL) ONE (12:58)
== END 2018-05-05 09:34 | disposition home or self-care (01) ==
LOC: BICMRI 09:33
PROVIDERS: ATTEND Internal Medicine Gastroenterology
DX: K21.9 Gastro-esophageal reflux disease without esophagitis (principal); K76.89 Other specified diseases of liver; D64.9 Anemia, unspecified; R19.7 Diarrhea, unspecified; R11.0 Nausea; N28.1 Cyst of kidney, acquired; F32.9 Major depressive disorder, single episode, unspecified; Z86.010 Personal history of colon polyps; Z98.890 Other specified postprocedural states; Z90.49 Acquired absence of other specified parts of digestive tract
CPT/HCPCS: 74183; 82565; A9579

== ENCOUNTER 2018-06-21 01:09 | Emergency (ER) | payer MEDICARE ==
[2018-06-21 02:07] LABS: #Eosinphils 0.1 thou/uL (0.0-0.7); #Lymphocytes 1.4 thou/uL (1.20-3.40); #Monocytes 0.6 thou/uL (0.11-0.59); #Neutrophils 2.5 thou/uL (1.40-6.50); %Basophils 0.8 % (0.0-1.0); %Eosinophils 2.9 % (0.0-10.0); %Lymphocytes 31.1 % (21.0-51.0); %Monocytes 11.9 % (0.0-10.0); %Neutrophils 53.4 % (42.0-75.0); Hemoglobin 11.2 g/dL (12.0-16.0); Mean Corpuscular HGB CONC 33.7 g/dL (32.0-36.0); Mean Corpuscular Volume 86.1 fL (78.0-98.0); Mean Platelet Volume 7.4 fL (7.4-10.4); Platelet Count 209 thou/uL (130-400); RBC Distribution Width 14.7 % (11.5-14.5); Red Blood Cell (RBC) Count 3.85 mill/uL (4.20-5.40); White Blood Cell (WBC) Count 4.6 thou/uL (4.8-10.8)
[2018-06-21 02:30] LABS: ALT (SGPT) 18 U/L (8-55); AST (SGOT) 18 U/L (5-34); Albumin 4.4 g/dL (3.4-4.8); Alkaline Phosphatase 69 U/L (40-150); Anion Gap 15 mmol/L (10-20); BUN (Urea Nitrogen) 26 mg/dL (9.8-20.1); Bilirubin, Total 0.3 mg/dL (0.2-1.2); Calc. Creatinine Clearance 0 mL/min (70-130); Calcium 10.3 mg/dL (7.8-10.44); Carbon Dioxide 21 mmol/L (23-31); Chloride 111 mmol/L (98-107); Estimated GFR-MDRD 39; Globulin 2.8 g/dL (2.4-3.5); Glucose 183 mg/dL (80-115); Potassium 3.9 mmol/L (3.5-5.1); Protein, Total 7.2 g/dL (6.0-8.3); Sodium 143 mmol/L (136-145)
== END 2018-06-21 04:06 | disposition home or self-care (01) ==
LOC: ERS 01:09
DX: E05.90 Thyrotoxicosis, unspecified without thyrotoxic crisis or storm (principal); E11.9 Type 2 diabetes mellitus without complications; I10 Essential (primary) hypertension; F31.9 Bipolar disorder, unspecified; Z79.84 Long term (current) use of oral hypoglycemic drugs; Z79.899 Other long term (current) drug therapy
CPT/HCPCS: 36415; 80053; 84443; 85025; 99283

== ENCOUNTER 2018-06-22 03:10 | Emergency (ER) | payer MEDICARE ==
[2018-06-22 04:15] LABS: #Basophils 0.1 thou/uL (0.0-0.2); #Eosinphils 0.2 thou/uL (0.0-0.7); #Lymphocytes 2.4 thou/uL (1.20-3.40); #Monocytes 0.5 thou/uL (0.11-0.59); #Neutrophils 2.5 thou/uL (1.40-6.50); %Basophils 1.3 % (0.0-1.0); %Eosinophils 3.1 % (0.0-10.0); %Lymphocytes 42.8 % (21.0-51.0); %Monocytes 8.7 % (0.0-10.0); %Neutrophils 44.2 % (42.0-75.0); Hemoglobin 11.6 g/dL (12.0-16.0); Mean Corpuscular HGB CONC 33.3 g/dL (32.0-36.0); Mean Corpuscular Hemoglobin 28.6 pg (27.0-31.0); Mean Corpuscular Volume 85.9 fL (78.0-98.0); Mean Platelet Volume 7.5 fL (7.4-10.4); Platelet Count 246 thou/uL (130-400); RBC Distribution Width 14.8 % (11.5-14.5); Red Blood Cell (RBC) Count 4.04 mill/uL (4.20-5.40); White Blood Cell (WBC) Count 5.6 thou/uL (4.8-10.8)
[2018-06-22 04:28] LABS: Bilirubin Negative (Negative); Blood, Urine Negative (Negative); Clarity CLEAR (Clear); Glucose, Urine (Dipstick) Negative (Negative); Leukocyte Trace (Negative); Nitrite Negative (Negative); Protein, Urine (Dipstick) Negative (Neg-Trace); Specific Gravity, Urine 1.005 (1.002-1.036); Urobilinogen 0.2 mg/dL (0.2-1.0); pH, Urine 6.5 (5.0-9.0)
[2018-06-22 04:30] LABS: Bacteria/HPF None Seen HPF (None Seen); Hyaline Casts/LPF 0-3 HYALINE CAST LPF (0-3 Hyaline); Pathc Cast-AUWi Flag 0.14 (0-2.49); RBC/HPF 0-3 HPF (0-3); Squamous Epithelial 0-3 HPF (0-3); WBC/HPF 0-3 HPF (0-3)
[2018-06-22 04:34] LABS: ALT (SGPT) 20 U/L (8-55); AST (SGOT) 21 U/L (5-34); Acetaminophen Less than 6.0 mcg/mL (10.0-30.0); Albumin 4.6 g/dL (3.4-4.8); Alcohol Less than 10 mg/dL (Less than 10); Alkaline Phosphatase 65 U/L (40-150); Anion Gap 14 mmol/L (10-20); BUN (Urea Nitrogen) 26 mg/dL (9.8-20.1); Bilirubin, Total 0.3 mg/dL (0.2-1.2); Calc. Creatinine Clearance 0 mL/min (70-130); Calcium 10.2 mg/dL (7.8-10.44); Carbon Dioxide 23 mmol/L (23-31); Chloride 110 mmol/L (98-107); Estimated GFR-MDRD 31; Globulin 2.9 g/dL (2.4-3.5); Glucose 119 mg/dL (80-115); Potassium 4.1 mmol/L (3.5-5.1); Protein, Total 7.5 g/dL (6.0-8.3); Salicylate Less than 8.0 mg/dL (15.0-30.0); Sodium 143 mmol/L (136-145)
[2018-06-22 04:41] LABS: Amphetamine Not Detected (NotDetected); Barbiturates Screen Not Detected (NotDetected); Benzodiazepine Screen Not Detected (NotDetected); Cocaine Metabolite Screen Not Detected (NotDetected); Medtox Control Line Valid? VALID (VALID); Medtox Reader # READER 4; Methadone Not Detected (NotDetected); Methamphetamine Not Detected (NotDetected); Opiate Screen Not Detected (NotDetected); Oxycodone Screen Not Detected (NotDetected); Phencyclidine (PCP) Not Detected (NotDetected); THC/Cannabinoid Screen Not Detected (NotDetected); Tricyclic Screen Detected (NotDetected)
[2018-06-22] MEDS ORDERED: metFORMIN 500 MG TAB PO SCH (09:00)
[2018-06-22] MEDS ORDERED: Cholecalciferol (Vitamin D3) 400 UNITS TAB PO SCH (09:00)
[2018-06-22] MEDS ORDERED: Acetaminophen 500 MG TAB ONE (10:34)
[2018-06-22] MEDS ORDERED: Atorvastatin Calcium 10 MG TAB PO SCH (21:00)
[2018-06-23] MEDS ORDERED: Levothyroxine Sodium 75 MCG TAB PO SCH (06:00)
== END 2018-06-22 12:43 ==
LOC: ERS 03:10
DX: F30.9 Manic episode, unspecified (principal); R45.850 Homicidal ideations; E11.9 Type 2 diabetes mellitus without complications; E03.9 Hypothyroidism, unspecified; I10 Essential (primary) hypertension; Z79.899 Other long term (current) drug therapy; Z79.84 Long term (current) use of oral hypoglycemic drugs
CPT/HCPCS: 36415; 80053; 80306; 80307; 81003; 81015; 84443; 85025; 99285

== ENCOUNTER 2019-03-24 13:22 | Outpatient (CLI) | payer MEDICARE ==
--- NOTE | 2019-03-24 14:55 | MMO ---
Bilateral MAMMO Bilat Screen DDI+NANCY. CLINICAL HISTORY: Patient is 68 years old and is seen for screening. The patient has the following family history of breast cancer: mother and maternal aunt. The patient has no personal history of cancer. The patient has a history of left needle biopsy - benign. VIEWS: The views performed were: bilateral craniocaudal with tomosynthesis and bilateral mediolateral oblique with tomosynthesis. FILMS COMPARED: The present examination has been compared to prior imaging studies performed at [facility] on 03/09/2018, and at [facility] on 12/14/2006 and 05/18/2013. MAMMOGRAM FINDINGS: There are scattered fibroglandular densities. There are stable benign appearing calcifications seen in both breasts. There are no suspicious masses, suspicious calcifications, or new areas of architectural distortion. IMPRESSION: THERE IS NO MAMMOGRAPHIC EVIDENCE OF MALIGNANCY. A ROUTINE FOLLOW-UP MAMMOGRAM IN 1 YEAR IS RECOMMENDED. THE RESULTS OF THIS EXAM WERE SENT TO THE PATIENT. ACR BI-RADS Category 2 - Benign finding MAMMOGRAPHY NOTE: 1. A negative mammogram report should not delay a biopsy if a dominant of clinically suspicious mass is present. 2. Approximately 10% to 15% of breast cancers are not detected by mammography. 3. Adenosis and dense breasts may obscure an underlying neoplasm.
--- NOTE | 2019-03-24 16:20 | BD ---
DEXA BONE DENSITY EXAM: HISTORY: A 68-year-old postmenopausal female for screening. COMPARISON: 05/17/2013 FINDINGS: LUMBAR SPINE BMD (g/cm2) T-SCORE L1 0.912 -0.7 L2 0.974 -0.5 L3 0.956 -1.2 L4 1.093 0.3 TOTAL L1-L4 0.980 -0.6 LEFT FEMORAL NECK 0.522 -2.9 TOTAL PROXIMAL LEFT FEMUR 0.785 -1.3 IMPRESSION: Osteoporosis. When compared to the prior examination, the bone density in the hip has decreased appr oximately 9%, and the bony density in the spine has decreased approximately 5%. POS: TPC
== END 2019-03-24 13:23 | disposition home or self-care (01) ==
LOC: BICMAMMO 13:22
PROVIDERS: ATTEND Family Medicine
DX: Z12.31 Encounter for screening mammogram for malignant neoplasm of breast (principal); Z78.0 Asymptomatic menopausal state; M81.0 Age-related osteoporosis without current pathological fracture; Z80.3 Family history of malignant neoplasm of breast
CPT/HCPCS: 77063; 77067; 77080

== ENCOUNTER 2020-08-06 09:04 | Outpatient (CLI) | payer MEDICARE ==
--- NOTE | 2020-08-06 12:05 | RAD ---
EXAM: XR Barium Enema A/C STANDARD PROVIDED CLINICAL HISTORY: Incomplete colonoscopy. Ascending colon and cecum unable to be evaluated. COMPARISON: None FINDINGS: A double contrast barium enema was performed in usual fashion. The colon demonstrates tortuosity with redundancy of the transverse colon which extends into the pelvis. Contrast was visualized to the level of the cecum with contrast seen in the appendix. Contrast was unable to be adequately evacuated on this exam. No annular constricting lesion is seen. No definite persistent filling defect is visualized. Large amount of retained barium is present on the postevacuation images. Tobacco Shaker AP image of the abdomen demonstrates nonspecific bowel gas pattern. Radiopaque densities overli e the pelvis likely related to prior tubal ligation. Surgical clips overlie the right upper quadrant. There is prominent left convex rotoscoliosis of the lumbar spine. IMPRESSION: 1. No annular constricting lesion or persistent filling defect is seen involving the colon. 2. Large amount of retained contrast seen on postevacuation images.
== END 2020-08-06 09:05 | disposition home or self-care (01) ==
LOC: RAD 09:04
PROVIDERS: ATTEND Internal Medicine Gastroenterology
DX: Z53.9 Procedure and treatment not carried out, unspecified reason (principal); K52.89 Other specified noninfective gastroenteritis and colitis
CPT/HCPCS: 74280

== ENCOUNTER 2020-10-02 13:05 | Outpatient (CLI) | payer MEDICARE | END 2020-10-02 13:06 | disposition home or self-care (01) | LOC: DTY/OP 13:05 | PROVIDERS: ATTEND Family Medicine | DX: E11.22 Type 2 diabetes mellitus with diabetic chronic kidney disease (principal); N18.9 Chronic kidney disease, unspecified; E11.21 Type 2 diabetes mellitus with diabetic nephropathy | CPT/HCPCS: 97802 ==

== ENCOUNTER 2021-07-02 15:39 | Outpatient (CLI) | payer MEDICARE | END 2021-07-02 15:40 | disposition home or self-care (01) | LOC: BICMAMMO 15:39 | PROVIDERS: ATTEND Family Medicine | DX: Z12.31 Encounter for screening mammogram for malignant neoplasm of breast (principal); Z80.3 Family history of malignant neoplasm of breast | CPT/HCPCS: 77063; 77067 ==

== ENCOUNTER 2022-05-01 08:26 | Inpatient (IN) | payer MEDICARE ==
[2022-05-01 09:15] LABS: #Lymphocytes 1.7 thou/uL (1.20-3.40); #Monocytes 0.7 thou/uL (0.11-0.59); #Neutrophils 5.5 thou/uL (1.40-6.50); %Basophils 0.1 % (0.0-1.0); %Eosinophils 0.6 % (0.0-10.0); %Lymphocytes 21.2 % (21.0-51.0); %Monocytes 9.2 % (0.0-10.0); Hemoglobin 13.2 g/dL (12.0-16.0); Mean Corpuscular HGB CONC 32.2 g/dL (32.0-36.0); Mean Corpuscular Hemoglobin 32.2 pg (27.0-31.0); Mean Platelet Volume 8.3 fL (7.4-10.4); Platelet Count 168 thou/uL (130-400); RBC Distribution Width 13.1 % (11.5-14.5)
[2022-05-01 09:33] LABS: ALT (SGPT) 20 U/L (8-55); AST (SGOT) 37 U/L (5-34); Albumin 3.9 g/dL (3.4-4.8); Alkaline Phosphatase 56 U/L (40-110); Anion Gap 17 mmol/L (10-20); BUN (Urea Nitrogen) 25 mg/dL (9.8-20.1); Bilirubin, Total 0.4 mg/dL (0.2-1.2); Calc. Creatinine Clearance 0 mL/min (70-130); Calcium 9.3 mg/dL (7.8-10.44); Carbon Dioxide 23 mmol/L (23-31); Chloride 107 mmol/L (98-107); Estimated GFR 29; Globulin 2.9 g/dL (2.4-3.5); Glucose 150 mg/dL (80-115); Potassium 5.1 mmol/L (3.5-5.1); Protein, Total 6.8 g/dL (5.8-8.1); Sodium 142 mmol/L (136-145)
[2022-05-01 09:37] LABS: Acetaminophen Less than 10.0 mcg/mL (10.0-30.0); Alcohol Less than 10 mg/dL (Less than 10); Salicylate Less than 8.0 mg/dL (15.0-30.0)
[2022-05-01 12:25] LABS: Lactic Acid 3.9 mmol/L (0.5-2.2)
[2022-05-01 12:49] LABS: Bilirubin Negative (Negative); Blood, Urine Negative (Negative); Clarity Clear (Clear); Glucose, Urine (Dipstick) Normal (Negative); Ketone, Urine Trace mg/dL (Negative); Leukocyte Negative Leu/uL (Negative); Nitrite Negative (Negative); Protein, Urine (Dipstick) Negative (Neg-Trace); Specific Gravity, Urine 1.009 (1.002-1.036); Urobilinogen Normal mg/dL (Less than 2)
[2022-05-01 12:58] LABS: Amphetamine Not Detected (NotDetected); Barbiturates Screen Not Detected (NotDetected); Benzodiazepine Screen Not Detected (NotDetected); Cocaine Metabolite Screen Not Detected (NotDetected); Methadone Not Detected (NotDetected); Methamphetamine Not Detected (NotDetected); Opiate Screen Not Detected (NotDetected); Oxycodone Screen Not Detected (NotDetected); Phencyclidine (PCP) Not Detected (NotDetected); THC/Cannabinoid Screen Not Detected (NotDetected); Tricyclic Screen Detected (NotDetected)
[2022-05-01] MEDS ORDERED: Vancomycin 1 GM/200 ML BAG ONE (13:09)
[2022-05-01] MEDS ORDERED: Cefepime 2 GM VIAL ONE (13:09)
[2022-05-01 15:45] LABS: SARS-CoV-2 NAA Rapid Test Not Detected (NotDetected)
[2022-05-01] MEDS ORDERED: HumaLOG 300 UNITS/3 ML VIAL SC PRN (16:47)
[2022-05-01] MEDS ORDERED: Acetaminophen 325 MG TAB PO PRN (16:47)
[2022-05-01] MEDS ORDERED: Ondansetron ODT 4 MG TAB PO PRN (16:47)
[2022-05-01] MEDS ORDERED: Dextrose 5% in Water 1,000 ML IV PRN (16:47)
[2022-05-01] MEDS ORDERED: Dextrose 50% Abboject 50 ML SYRINGE SLOW IVP PRN (16:47)
[2022-05-01] MEDS ORDERED: Sodium Chloride 0.9% 1,000 ML IV SCH (17:00)
[2022-05-01 17:32] LABS: Lactic Acid 3.4 mmol/L (0.5-2.2)
[2022-05-01] MEDS ORDERED: cefTRIAXone\\ROCEPHIN 1 GM in Sodium Chloride 0.9% 100 ML IVPB SCH (18:00)
[2022-05-01 18:02] LABS: Thyroid Stimulating Hormone 0.2635 uIU/mL (0.35-4.94)
[2022-05-01 18:31] VITALS: BMI 29.9
[2022-05-01] MEDS: Sodium Chloride 0.9% 1,000 ML IV SCH (19:48)
[2022-05-01] MEDS ORDERED: Vancomycin 1 GM in Premix Bag 1 BAG IVPB SCH (21:00)
[2022-05-01] MEDS ORDERED: Cefepime 2 GM in Sodium Chloride 0.9% 100 ML IVPB SCH (21:00)
[2022-05-02 04:41] LABS: Lactic Acid 1.2 mmol/L (0.5-2.2)
[2022-05-02 04:44] LABS: Anion Gap 12 mmol/L (10-20); BUN (Urea Nitrogen) 20 mg/dL (9.8-20.1); Calc. Creatinine Clearance 47 mL/min (70-130); Calcium 8.4 mg/dL (7.8-10.44); Carbon Dioxide 21 mmol/L (23-31); Chloride 115 mmol/L (98-107); Estimated GFR 41; Glucose 150 mg/dL (80-115); Potassium 4.5 mmol/L (3.5-5.1); Sodium 143 mmol/L (136-145)
[2022-05-02 05:03] LABS: Band 14 % (5-11); Hemoglobin 11.2 g/dL (12.0-16.0); Lymphocytes 34 % (21-51); MDiff Complete? YES; Macrocytosis SLIGHT = 6-15 cells (100X) (0-5/hpf); Mean Corpuscular HGB CONC 32.3 g/dL (32.0-36.0); Mean Corpuscular Hemoglobin 32.6 pg (27.0-31.0); Mean Platelet Volume 8.2 fL (7.4-10.4); Monocytes 4 % (0-10); Neutrophil 46 % (42-75); Platelet Count 149 thou/uL (130-400); Platelet Morphology Comment Appears Adequate; RBC Distribution Width 12.9 % (11.5-14.5); Reactive Lymphocytes 2 % (0-10); Red Blood Cell (RBC) Count 3.44 mill/uL (4.20-5.40); White Blood Cell (WBC) Count 5.1 thou/uL (4.8-10.8)
[2022-05-02] MEDS: Sodium Chloride 0.9% 1,000 ML IV SCH ×2 (06:14→20:00)
[2022-05-02] MEDS: cefTRIAXone\\ROCEPHIN 1 GM in Sodium Chloride 0.9% 100 ML IVPB SCH (09:04)
[2022-05-02 11:15] LABS: Syphilis Antibody Nonreactive (Nonreactive); Syphilis Antibody Index 0.01 S/CO (<1.00 Non-Reactive)
[2022-05-02] MEDS: HumaLOG 300 UNITS/3 ML VIAL SC PRN (12:14)
[2022-05-03 04:33] LABS: Anion Gap 16 mmol/L (10-20); BUN (Urea Nitrogen) 19 mg/dL (9.8-20.1); Calc. Creatinine Clearance 46 mL/min (70-130); Calcium 8.6 mg/dL (7.8-10.44); Carbon Dioxide 19 mmol/L (23-31); Chloride 114 mmol/L (98-107); Estimated GFR 39; Glucose 131 mg/dL (80-115); Potassium 4.5 mmol/L (3.5-5.1); Sodium 144 mmol/L (136-145)
[2022-05-03 04:43] LABS: #Basophils 0.1 thou/uL (0.0-0.2); #Eosinphils 0.1 thou/uL (0.0-0.7); #Lymphocytes 2.2 thou/uL (1.20-3.40); #Monocytes 0.7 thou/uL (0.11-0.59); #Neutrophils 1.8 thou/uL (1.40-6.50); %Eosinophils 2.4 % (0.0-10.0); %Lymphocytes 45.6 % (21.0-51.0); %Monocytes 14.1 % (0.0-10.0); %Neutrophils 36.8 % (42.0-75.0); Hemoglobin 10.9 g/dL (12.0-16.0); Mean Corpuscular HGB CONC 31.9 g/dL (32.0-36.0); Mean Corpuscular Hemoglobin 32.5 pg (27.0-31.0); Mean Platelet Volume 8.1 fL (7.4-10.4); Platelet Count 146 thou/uL (130-400); RBC Distribution Width 13.3 % (11.5-14.5); Red Blood Cell (RBC) Count 3.36 mill/uL (4.20-5.40); White Blood Cell (WBC) Count 4.8 thou/uL (4.8-10.8)
[2022-05-03] MEDS ORDERED: BIOTIN 1 GM PO SCH (09:00)
[2022-05-03] MEDS: Levothyroxine Sodium 75 MCG TAB PO SCH (09:17)
[2022-05-03] MEDS: Calcitriol 0.25 MCG CAP PO SCH (10:04)
[2022-05-03] MEDS: Cholecalciferol 1,000 UNITS (25 MCG) TAB PO SCH (10:04)
[2022-05-03] MEDS: cefTRIAXone\\ROCEPHIN 1 GM in Sodium Chloride 0.9% 100 ML IVPB SCH (10:04)
[2022-05-03] MEDS: Sodium Chloride 0.9% 1,000 ML IV SCH ×2 (10:05→19:49)
[2022-05-04 05:15] LABS: Anion Gap 16 mmol/L (10-20); BUN (Urea Nitrogen) 23 mg/dL (9.8-20.1); Calc. Creatinine Clearance 40 mL/min (70-130); Calcium 9.3 mg/dL (7.8-10.44); Chloride 113 mmol/L (98-107); Estimated GFR 36; Glucose 138 mg/dL (80-115); Potassium 4.5 mmol/L (3.5-5.1); Sodium 146 mmol/L (136-145)
[2022-05-04] MEDS: Levothyroxine Sodium 75 MCG TAB PO SCH (05:23)
[2022-05-04 05:43] LABS: Carbon Dioxide 22 mmol/L (23-31)
[2022-05-04 05:47] LABS: Eosinophils 1 % (0-10); Hemoglobin 12.3 g/dL (12.0-16.0); Lymphocytes 48 % (21-51); MDiff Complete? YES; Macrocytosis SLIGHT = 6-15 cells (100X) (0-5/hpf); Mean Corpuscular HGB CONC 32.5 g/dL (32.0-36.0); Mean Corpuscular Hemoglobin 33.3 pg (27.0-31.0); Mean Platelet Volume 8.7 fL (7.4-10.4); Monocytes 11 % (0-10); Neutrophil 40 % (42-75); Platelet Count 158 thou/uL (130-400); Platelet Morphology Comment Appears Adequate; RBC Distribution Width 13.2 % (11.5-14.5); Red Blood Cell (RBC) Count 3.68 mill/uL (4.20-5.40); White Blood Cell (WBC) Count 5.3 thou/uL (4.8-10.8)
[2022-05-04] MEDS: Cholecalciferol 1,000 UNITS (25 MCG) TAB PO SCH (09:03)
[2022-05-04] MEDS: Calcitriol 0.25 MCG CAP PO SCH (09:03)
[2022-05-04] MEDS: Lactated Ringer's 1,000 ML IV SCH ×2 (09:37→18:24)
[2022-05-05] MEDS: Lactated Ringer's 1,000 ML IV SCH ×3 (01:47→18:24)
[2022-05-05 04:33] LABS: #Eosinphils 0.1 thou/uL (0.0-0.7); #Lymphocytes 2.6 thou/uL (1.20-3.40); #Neutrophils 2.8 thou/uL (1.40-6.50); %Basophils 0.7 % (0.0-1.0); %Eosinophils 1.7 % (0.0-10.0); %Lymphocytes 39.8 % (21.0-51.0); %Monocytes 14.8 % (0.0-10.0); Hemoglobin 11.3 g/dL (12.0-16.0); Mean Corpuscular Hemoglobin 32.7 pg (27.0-31.0); Mean Platelet Volume 7.8 fL (7.4-10.4); Platelet Count 170 thou/uL (130-400); RBC Distribution Width 13.4 % (11.5-14.5); Red Blood Cell (RBC) Count 3.44 mill/uL (4.20-5.40); White Blood Cell (WBC) Count 6.5 thou/uL (4.8-10.8)
[2022-05-05 04:48] LABS: Anion Gap 13 mmol/L (10-20); BUN (Urea Nitrogen) 23 mg/dL (9.8-20.1); Calc. Creatinine Clearance 40 mL/min (70-130); Calcium 9.2 mg/dL (7.8-10.44); Carbon Dioxide 22 mmol/L (23-31); Chloride 114 mmol/L (98-107); Estimated GFR 36; Glucose 156 mg/dL (80-115); Potassium 4.3 mmol/L (3.5-5.1); Sodium 145 mmol/L (136-145)
[2022-05-05] MEDS: Levothyroxine Sodium 75 MCG TAB PO SCH (05:17)
[2022-05-05] MEDS: Calcitriol 0.25 MCG CAP PO SCH (10:03)
[2022-05-05] MEDS: Cholecalciferol 1,000 UNITS (25 MCG) TAB PO SCH (10:03)
[2022-05-05] MEDS: HumaLOG 300 UNITS/3 ML VIAL SC PRN (12:01)
[2022-05-05] MEDS ORDERED: Divalproex Sodium DR 500 MG TAB PO SCH (14:15)
[2022-05-05 15:16] VITALS: BP 113/67; TEMP 98.4
[2022-05-06] MEDS ORDERED: Divalproex Sodium DR 500 MG TAB PO SCH (21:00)
== END 2022-05-05 20:01 | DRG 689 ==
LOC: ERS 08:26 → ERHOLD 13:32 → 2NO 18:01 → OBSVTOIN 05-03 14:11
PROVIDERS: ADMIT Hospitalist; ATTEND Hospitalist
DX: N39.0 Urinary tract infection, site not specified (principal); G93.41 Metabolic encephalopathy; E87.2 Acidosis; Z20.822 Contact with and (suspected) exposure to COVID-19; E78.5 Hyperlipidemia, unspecified; I12.9 Hypertensive chronic kidney disease with stage 1 through stage 4 chronic kidney disease, or unspecified chronic kidney disease; E03.9 Hypothyroidism, unspecified; I48.91 Unspecified atrial fibrillation; F31.9 Bipolar disorder, unspecified; F03.90 Unspecified dementia, unspecified severity, without behavioral disturbance, psychotic disturbance, mood disturbance, and anxiety; N18.30 Chronic kidney disease, stage 3 unspecified; E11.22 Type 2 diabetes mellitus with diabetic chronic kidney disease; Z79.890 Hormone replacement therapy; Z79.899 Other long term (current) drug therapy; Z90.49 Acquired absence of other specified parts of digestive tract; Z98.890 Other specified postprocedural states; Z79.84 Long term (current) use of oral hypoglycemic drugs
CPT/HCPCS: 36415; 36416; 70450; 71045; 74176; 80048; 80053; 80164; 80306; 80307; 81003; 82607; 83605; 83735; 84425; 84443; 84484; 85025; 86780; 87040; 87086; 93005; 96361; 96365; 96375; 97139; G0378; J0692; J0696; J1815; J3370; J3490; J7050